=== PATIENT | female | born 1980 | race Caucasian/White ===

== ENCOUNTER 2022-10-22 13:52 | Inpatient (IN) | payer MEDICAID, SELFPAY ==
[2022-10-22 14:00] VITALS: BP 128/82; PULSE 108; RESP 16; TEMP 37; O2SAT 98
[2022-10-22 14:20] LABS: Basophils # 0.1 10^3/uL (0.0-0.1); Basophils % 0.8 %; Eosinophils # 0.1 10^3/uL (0.0-0.8); Eosinophils % 1.5 %; Hematocrit 43.8 % (37.0-47.0); Hemoglobin 14.3 g/dL (11.5-15.3); Lymphocytes # 1.8 10^3/uL (0.8-4.8); Lymphocytes % 19.3 %; Mean Corpuscular HGB Conc 32.6 g/dL (30.0-36.0); Mean Corpuscular Hemoglobin 31.9 pg (28.0-34.0); Mean Corpuscular Volume 97.8 fl (81-99); Mean Platelet Volume 10.2 fL (7.4-10.4); Monocytes # 0.9 10^3/uL (0.2-0.9); Neutrophils # 6.24 10^3/uL (1.8-7.7); Neutrophils % 68.2 %; Nucleated Red Blood Cells % 0 %; Platelet Count 224 10^3/cmm (130-400); Red Blood Count 4.48 10^6/uL (4.1-5.3); Red Cell Distribution Width 12.7 % (12.1-15.1); White Blood Count 9.1 10^3/uL (4.0-10.0)
[2022-10-22 14:21] VITALS: BP 109/76; PULSE 88; RESP 14; O2SAT 98
--- NOTE | 2022-10-22 14:38 | ED.C_ITS ---
Documented by User: AMRIK Schafer 10/22/22 16:32 HPI - Psych General: Chief Complaint: Psychiatric Symptoms Stated Complaint: SI/MHE Time Seen by Provider: 10/22/22 14:05 History of Present Illness: Patient is a 41-year-old female who comes in the ED with SI. Patient has a history of mood disorder, depression and anxiety. She currently gets a shot of Abilify every month and takes Prozac daily and Vistaril for acute anxiety. Thoughts of SI started yesterday. She had a plan to overdose on medications. She thinks that recent trigger for SI was her son leaving earlier than expected when visiting. She has had low energy and poor sleep. She has loss of interest in any activities and has trouble concentrating. Denies any alcohol or drug use. Associated symptoms: Reports depression and suicidal ideation Review of Systems Const: Denies: fever(s), chills or fatigue Eyes: Denies: change in vision or eye discomfort ENMT: Denies: throat pain, odynophagia, nasal discharge or nasal congestion Card: Denies: chest pain, palpitations, edema, swelling of feet/ankles, dyspnea on exertion or orthopnea Resp: Denies: dyspnea, productive cough or non-productive cough GI: Denies: abdominal pain, nausea, vomiting, diarrhea, constipation or hematochezia : Denies: flank pain, dysuria or hematuria Musc: Denies: neck pain, back pain or extremity swelling Skin/Breast: Denies: rash or new lesions Neuro: Denies: headache(s), numbness in extremities or weakness in extremities Psych: Reports: anxiety, depression and suicidal ideation [facility] ED PFSH: Medical History Anxiety Depression Mood disorder Physical Exam Const: COMMON NORMALS: patient oriented x3 and alert GENERAL APPEARANCE: cooperative HENMT: COMMON NORMALS: normocephalic HEAD & SCALP: normocephalic MOUTH: Normal oral and palatal mucosa present THROAT: posterior oropharynx normal and uvula midline Neck/C-Spine: COMMON NORMALS: supple GENERAL: Yes normal visual inspection Resp: COMMON NORMALS: normal respiratory effort, No retractions, No use of accessory muscles and clear to auscultation bilaterally AUSCULTATION: clear to auscultation bilaterally Cardio: COMMON NORMALS: regular rate, regular rhythm, S1 normal heart sound present, S2 normal heart sound present, No gallops present (Cardio), No clicks present (Cardio), No murmurs present (Cardio) and Peripheral pulses 2+ throughout RATE: regular rate RHYTHM: regular rhythm HEART SOUNDS: S1 normal heart sound present and S2 normal heart sound present PERIPHERAL PULSES: Peripheral pulses 2+ throughout GI: COMMON NORMALS: Normal to inspection, nondistended, normoactive bowel sounds present, Soft to palpation, non-tender and no masses PALPATION: Yes Soft to palpation : COMMON NORMALS: Yes no CVA tenderness BLADDER/KIDNEY EXAM: Yes no CVA tenderness Back/Pelvis: COMMON NORMALS: no CVA tenderness Extremity: COMMON NORMALS: normal to inspection Neuro: COMMON NORMALS: patient oriented x3 SENSORIUM/ORIENTATION: Yes alert GAIT: Yes Normal gait present Skin: GENERAL SKIN EXAM: dry skin Course Consultations: Consultation #1: Contacted Dr. Nj and told him about patient case. He agreed to have patient admitted to NPU. Vital Signs: Vital signs: Vital Signs Temperature 98.5 F 10/22/22 20:43 Pulse Rate 83 10/22/22 20:43 Respiratory Rate 17 10/22/22 20:43 Blood Pressure 116/77 10/22/22 20:43 Pulse Oximetry 94 10/22/22 20:43 Oxygen Delivery Me thod 10/22/22 20:43 MDM - Psych Medical Decision Making Patient is a 41-year-old female comes to the ED with SI. She was medically cleared here in the ED all labs were performed. Patient is willing to be admitted to the NPU for help. Negative urine drug screen. Negative blood alcohol level. I contacted Dr. Nj and told about patient case and he agreed to have patient admitted to the NPU. Dr. Sofia placed the admitting orders. Lab Data I reviewed the patient's lab results. 10/22/22 14:11 10/22/22 14:11 Laboratory Results WBC 9.1 10^3/uL (4.0-10.0) 10/22/22 14:11 RBC 4.48 10^6/uL (4.1-5.3) 10/22/22 14:11 Hgb 14.3 g/dL (11.5-15.3) 10/22/22 14:11 Hct 43.8 % (37.0-47.0) 10/22/22 14:11 MCV 97.8 fl (81-99) 10/22/22 14:11 MCH 31.9 pg (28.0-34.0) 10/22/22 14:11 MCHC 32.6 g/dL (30.0-36.0) 10/22/22 14:11 RDW 12.7 % (12.1-15.1) 10/22/22 14:11 Plt Count 224 10^3/cmm (130-400) 10/22/22 14:11 MPV 10.2 fL (7.4-10.4) 10/22/22 14:11 Neut % (Auto) 68.2 % 10/22/22 14:11 Lymph % (Auto) 19.3 % 10/22/22 14:11 [place] % (Auto) 10.0 % 10/22/22 14:11 Eos % (Auto) 1.5 % 10/22/22 14:11 Baso % (Auto) 0.8 % 10/22/22 14:11 Neut # (Auto) 6.24 10^3/uL (1.8-7.7) 10/22/22 14:11 Lymph # (Auto) 1.8 10^3/uL (0.8-4.8) 10/22/22 14:11 [place] # (Auto) 0.9 10^3/uL (0.2-0.9) 10/22/22 14:11 Eos # (Auto) 0.1 10^3/uL (0.0-0.8) 10/22/22 14:11 Baso # (Auto) 0.1 10^3/uL (0.0-0.1) 10/22/22 14:11 Nucleated RBC % (auto) 0 % 10/22/22 14:11 Nucleated RBCs # 0.0 /100WBC 10/22/22 14:11 Sodium 138 mmol/L (136-145) 10/22/22 14:11 Potassium 3.7 mmol/L (3.5-5.1) 10/22/22 14:11 Chloride 103 mmol/L (98-107) 10/22/22 14:11 Carbon Dioxide 25 mmol/L (22-29) 10/22/22 14:11 Anion Gap 13.7 (5-19) 10/22/22 14:11 BUN 8 mg/dL (6-20) 10/22/22 14:11 Creatinine 0.7 mg/dL (0.5-0.9) 10/22/22 14:11 GFR Calculation 93.2 mL/min (90-130) 10/22/22 14:11 Glucose 106 mg/dL (65-115) 10/22/22 14:11 Calculated Osmolality 285 mOsm/kg (285-295) 10/22/22 14:11 Calcium 9.3 mg/dL (8.5-10.5) 10/22/22 14:11 Total Bilirubin 0.4 mg/dL (0.15-1.2) 10/22/22 14:11 AST 15 U/L (0-32) 10/22/22 14:11 ALT 12 U/L (0-33) 10/22/22 14:11 Alkaline Phosphatase 108 U/L (35-105) H 10/22/22 14:11 Total Protein 7.3 g/dL (6.6-8.7) 10/22/22 14:11 Albumin 4.2 g/dL (3.5-5.2) 10/22/22 14:11 Globulin 3.1 g/dL (1.3-4.6) 10/22/22 14:11 HCG, Qual Negative (Negative) 10/22/22 14:11 Urine Color Yellow (Yellow) 10/22/22 14:50 Urine Appearance Clear (CLEAR) 10/22/22 14:50 Urine pH 6 (5-7) 10/22/22 14:50 Ur Specific [place] 1.010 (1.005-1.030) 10/22/22 14:50 Urine Protein Neg (Negative) 10/22/22 14:50 Urine Glucose (UA) Norm (Normal) 10/22/22 14:50 Urine Ketones Negative (Negative) 10/22/22 14:50 Urine Blood Neg (Negative) 10/22/22 14:50 Urine Nitrate Negative (Negative) 10/22/22 14:50 Urine Bilirubin Neg (Negative) 10/22/22 14:50 Urine Urobilinogen Neg mg/dL (Negative) 10/22/22 14:50 Ur Leukocyte Esterase Negative (Negative) 10/22/22 14:50 Salicylates < 0.3 mg/dL (3-10) L 10/22/22 14:11 Urine Opiates Screen Negative ng/mL (Negative) 10/22/22 14:50 Acetaminophen < 5.0 ug/mL (10-30) L 10/22/22 14:11 Ur Barbiturates Screen Negative ng/mL (Negative) 10/22/22 14:50 Ur Phencyclidine Scrn Negative ng/mL (Negative) 10/22/22 14:50 Ur Amphetamines Screen Negative ng/mL (Negative) 10/22/22 14:50 U Benzodiazepines Scrn Negative ng/mL (Negative) 10/22/22 14:50 Urine Cocaine Screen Negative ng/mL (Negative) 10/22/22 14:50 U Marijuana (THC) Screen Negative ng/mL (Negative) 10/22/22 14:50 Ethyl Alcohol < 10 mg/dL (0-10) 10/22/22 14:11 Discharge Plan Discharge Patient Disposition: Admitted As Inpatient Admit Provider: Luke Lopes Clinical Impression: Suicidal ideation Condition: Stable Coding Level of Care Code ED Dental Laboratory Assistant for Chg Fwd Exam Comprehensive Documented by User: Manoj Sofia DO 10/23/22 06:13 HPI - Psych General: Chief Complaint: Psychiatric Symptoms Stated Complaint: SI/MHE Time Seen by Provider: 10/22/22 14:05 PFS ED PFSH: Medical History Anxiety Depression Mood disorder Course Vital Signs: Vital signs: Vital Signs Temperature 98.5 F 10/22/22 20:43 Pulse Rate 83 10/22/22 20:43 Respiratory Rate 17 10/22/22 20:43 Blood Pressure 116/77 10/22/22 20:43 Pulse Oximetry 94 10/22/22 20:43 Oxygen Delivery Me thod 10/22/22 20:43 MDM - Psych Medical Decision Making Patient is a 41-year-old female comes to the ED with SI. She was medically cleared here in the ED all labs were performed. Patient is willing to be admitted to the NPU for help. Negative urine drug screen. Negative blood alcohol level. I contacted Dr. Nj and told about patient case and he agreed to have patient admitted to the NPU. Dr. Sofia placed the admitting orders. Chart reviewed and patient discussed with midlevel. Agree with assessment and plan. Admit to n.p.o. Lab Data 10/22/22 14:11 10/22/22 14:11 Laboratory Results WBC 9.1 10^3/uL (4.0-10.0) 10/22/22 14:11 RBC 4.48 10^6/uL (4.1-5.3) 10/22/22 14:11 Hgb 14.3 g/dL (11.5-15.3) 10/22/22 14:11 Hct 43.8 % (37.0-47.0) 10/22/22 14:11 MCV 97.8 fl (81-99) 10/22/22 14:11 MCH 31.9 pg (28.0-34.0) 10/22/22 14:11 MCHC 32.6 g/dL (30.0-36.0) 10/22/22 14:11 RDW 12.7 % (12.1-15.1) 10/22/22 14:11 Plt Count 224 10^3/cmm (130-400) 10/22/22 14:11 MPV 10.2 fL (7.4-10.4) 10/22/22 14:11 Neut % (Auto) 68.2 % 10/22/22 14:11 Lymph % (Auto) 19.3 % 10/22/22 14:11 [place] % (Auto) 10.0 % 10/22/22 14:11 Eos % (Auto) 1.5 % 10/22/22 14:11 Baso % (Auto) 0.8 % 10/22/22 14:11 Neut # (Auto) 6.24 10^3/uL (1.8-7.7) 10/22/22 14:11 Lymph # (Auto) 1.8 10^3/uL (0.8-4.8) 10/22/22 14:11 [place] # (Auto) 0.9 10^3/uL (0.2-0.9) 10/22/22 14:11 Eos # (Auto) 0.1 10^3/uL (0.0-0.8) 10/22/22 14:11 Baso # (Auto) 0.1 10^3/uL (0.0-0.1) 10/22/22 14:11 Nucleated RBC % (auto) 0 % 10/22/22 14:11 Nucleated RBCs # 0.0 /100WBC 10/22/22 14:11 Sodium 138 mmol/L (136-145) 10/22/22 14:11 Potassium 3.7 mmol/L (3.5-5.1) 10/22/22 14:11 Chloride 103 mmol/L (98-107) 10/22/22 14:11 Carbon Dioxide 25 mmol/L (22-29) 10/22/22 14:11 Anion Gap 13.7 (5-19) 10/22/22 14:11 BUN 8 mg/dL (6-20) 10/22/22 14:11 Creatinine 0.7 mg/dL (0.5-0.9) 10/22/22 14:11 GFR Calculation 93.2 mL/min (90-130) 10/22/22 14:11 Glucose 106 mg/dL (65-115) 10/22/22 14:11 Calculated Osmolality 285 mOsm/kg (285-295) 10/22/22 14:11 Calcium 9.3 mg/dL (8.5-10.5) 10/22/22 14:11 Total Bilirubin 0.4 mg/dL (0.15-1.2) 10/22/22 14:11 AST 15 U/L (0-32) 10/22/22 14:11 ALT 12 U/L (0-33) 10/22/22 14:11 Alkaline Phosphatase 108 U/L (35-105) H 10/22/22 14:11 Total Protein 7.3 g/dL (6.6-8.7) 10/22/22 14:11 Albumin 4.2 g/dL (3.5-5.2) 10/22/22 14:11 Globulin 3.1 g/dL (1.3-4.6) 10/22/22 14:11 HCG, Qual Negative (Negative) 10/22/22 14:11 Urine Color Yellow (Yellow) 10/22/22 14:50 Urine Appearance Clear (CLEAR) 10/22/22 14:50 Urine pH 6 (5-7) 10/22/22 14:50 Ur Specific [place] 1.010 (1.005-1.030) 10/22/22 14:50 Urine Protein Neg (Negative) 10/22/22 14:50 Urine Glucose (UA) Norm (Normal) 10/22/22 14:50 Urine Ketones Negative (Negative) 10/22/22 14:50 Urine Blood Neg (Negative) 10/22/22 14:50 Urine Nitrate Negative (Negative) 10/22/22 14:50 Urine Bilirubin Neg (Negative) 10/22/22 14:50 Urine Urobilinogen Neg mg/dL (Negative) 10/22/22 14:50 Ur Leukocyte Esterase Negative (Negative) 10/22/22 14:50 Salicylates < 0.3 mg/dL (3-10) L 10/22/22 14:11 Urine Opiates Screen Negative ng/mL (Negative) 10/22/22 14:50 Acetaminophen < 5.0 ug/mL (10-30) L 10/22/22 14:11 Ur Barbiturates Screen Negative ng/mL (Negative) 10/22/22 14:50 Ur Phencyclidine Scrn Negative ng/mL (Negative) 10/22/22 14:50 Ur Amphetamines Screen Negative ng/mL (Negative) 10/22/22 14:50 U Benzodiazepines Scrn Negative ng/mL (Negative) 10/22/22 14:50 Urine Cocaine Screen Negative ng/mL (Negative) 10/22/22 14:50 U Marijuana (THC) Screen Negative ng/mL (Negative) 10/22/22 14:50 Ethyl Alcohol < 10 mg/dL (0-10) 10/22/22 14:11 Discharge Plan Discharge Patient Disposition: Admitted As Inpatient Admit Provider: Luke Lopes Clinical Impression: Suicidal ideation Condition: Stable Coding Level of Care Code ED Dental Laboratory Assistant for [place] Fwd Exam Comprehensive
[2022-10-22 14:41] LABS: HCG, Serum Qual Negative (Negative)
[2022-10-22 14:42] LABS: Alanine Aminotransferase 12 U/L (0-33); Albumin Level 4.2 g/dL (3.5-5.2); Alkaline Phosphatase 108 U/L (35-105); Anion Gap 13.7 (5-19); Aspartate Amino Transferase 15 U/L (0-32); Blood Urea Nitrogen 8 mg/dL (6-20); Calcium 9.3 mg/dL (8.5-10.5); Carbon Dioxide 25 mmol/L (22-29); Chloride 103 mmol/L (98-107); Globulin 3.1 g/dL (1.3-4.6); Glomerular Filtration Rate 93.2 mL/min (90-130); Glucose 106 mg/dL (65-115); Osmolality Calculated 285 mOsm/kg (285-295); Potassium 3.7 mmol/L (3.5-5.1); Sodium 138 mmol/L (136-145); Total Bilirubin 0.4 mg/dL (0.15-1.2); Total Protein 7.3 g/dL (6.6-8.7)
[2022-10-22 14:48] LABS: Acetaminophen < 5.0 ug/mL (10-30); Alcohol Level < 10 mg/dL (0-10); Salicylate < 0.3 mg/dL (3-10)
[2022-10-22 15:04] LABS: Add Urine Microscopic? NO; Charge for UA Resulting for Rev
[2022-10-22] MEDS: LORazepam 1 mg Tablet PO (15:16)
[2022-10-22 15:34] LABS: Bilirubin Urine Neg (Negative); Blood Urine Neg (Negative); Glucose Urine UA Norm (Normal); Ketones Urine Negative (Negative); Leukocyte Esterase Urine Negative (Negative); Nitrate Urine Negative (Negative); Protein Urine Neg (Negative); Urine Appearance Clear (CLEAR); Urine Color Yellow (Yellow); Urobilinogen Urine Neg (Negative); pH Urine 6 (5-7)
[2022-10-22 15:36] LABS: Amphetamines Screen Urine Negative (Negative); Barbiturates Screen Urine Negative (Negative); Benzodiazepines Screen Urine Negative (Negative); Cocaine Screen Urine Negative (Negative); Opiate Screen Urine Negative (Negative); PCP Screen Urine Negative (Negative); THC Screen Urine Negative (Negative)
[2022-10-22 17:51] VITALS: BP 115/78; PULSE 77; RESP 16; TEMP 36.9; O2SAT 99
[2022-10-22 20:43] VITALS: BP 116/77; PULSE 83; RESP 17; TEMP 36.9; O2SAT 94
[2022-10-23 06:00] VITALS: BP 107/68; PULSE 65; RESP 16; TEMP 36.9; O2SAT 92
[2022-10-23] MEDS: sertraline 50 mg Tablet 25 MG PO (08:39)
[2022-10-23] MEDS: hyDROXYzine 25 mg Capsule 50 MG PO ×2 (11:04→18:50)
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
[2022-10-23 14:00] VITALS: BP 104/57; PULSE 89; RESP 17; TEMP 37.1; O2SAT 94
[2022-10-23 20:22] VITALS: BP 99/62; PULSE 74; RESP 16; TEMP 36.8; O2SAT 96
[2022-10-23] MEDS: trazodone 50 mg Tablet PO (20:53)
[2022-10-24] MEDS: sertraline 50 mg Tablet 25 MG PO (08:56)
[2022-10-24] MEDS: hyDROXYzine 25 mg Capsule 50 MG PO (12:58)
[2022-10-24 14:00] VITALS: BP 102/84; PULSE 75; RESP 16; TEMP 36.9; O2SAT 98
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
[2022-10-24] MEDS: lurasidone 20 mg Tablet 40 MG PO (16:12)
[2022-10-24] MEDS: nicotine 2 mg Gum BUCCAL (16:13)
[2022-10-24 21:10] VITALS: BP 99/62; PULSE 78; RESP 18; TEMP 37.1; O2SAT 92
[2022-10-25 06:00] VITALS: BP 114/72; PULSE 67; RESP 16; TEMP 36.7; O2SAT 96
[2022-10-25] MEDS: sertraline 50 mg Tablet 25 MG PO (08:23)
[2022-10-25] MEDS: acetaminophen 325 mg Tablet 650 MG PO (09:13)
[2022-10-25] MEDS: nicotine 21 mg Patch 1 PATCH TRANSDERMA (10:12)
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
[2022-10-25 14:00] VITALS: BP 104/66; PULSE 88; RESP 17; TEMP 36.8; O2SAT 98
[2022-10-25] MEDS: hyDROXYzine 25 mg Capsule 50 MG PO ×2 (15:58→19:56)
[2022-10-25] MEDS: lurasidone 20 mg Tablet 40 MG PO (17:20)
[2022-10-25] MEDS: trazodone 50 mg Tablet PO (19:56)
[2022-10-25 19:57] VITALS: BP 106/73; PULSE 82; RESP 18; TEMP 36.8; O2SAT 98
[2022-10-26 06:00] VITALS: BP 94/49; PULSE 74; RESP 18; TEMP 36.7; O2SAT 97
[2022-10-26] MEDS: lamoTRIgine 25 mg Tablet 50 MG PO (09:05)
[2022-10-26 14:00] VITALS: BP 100/55; PULSE 81; RESP 17; TEMP 37.1; O2SAT 96
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
[2022-10-26] MEDS: lurasidone 20 mg Tablet 40 MG PO (17:47)
[2022-10-26] MEDS: trazodone 50 mg Tablet PO (19:46)
[2022-10-26] MEDS: hyDROXYzine 25 mg Capsule 50 MG PO (19:46)
[2022-10-26 20:29] VITALS: BP 100/62; PULSE 70; RESP 16; TEMP 36.7; O2SAT 100
[2022-10-27 06:00] VITALS: BP 95/62; PULSE 62; RESP 17; TEMP 36.6; O2SAT 97
[2022-10-27] MEDS: acetaminophen 325 mg Tablet 650 MG PO ×2 (08:37→18:20)
[2022-10-27] MEDS: lamoTRIgine 25 mg Tablet 50 MG PO (08:38)
[2022-10-27] MEDS: nicotine 21 mg Patch 1 PATCH TRANSDERMA (12:23)
[2022-10-27 14:00] VITALS: BP 122/86; PULSE 98; RESP 16; TEMP 36.6; O2SAT 98
--- NOTE | 2022-10-27 14:53 | P.NPUPN_ITS ---
Subjective NPU Subjective: Patient presented today reporting that she was feeling much better on medications that she had Moses have arranged. She reports that the Latuda and the mental are feeling effective. She reported a plan to discontinue the Abilify Maintena according to her discussion with Dr. Lopes. We discussed that we would review the records and talk to Dr. Lopes to ensure that is in fact the plan. We discussed working with the treatment team on a discharge plan and we would discuss what the timing of discharge would likely be in the morning. Otherwise she denies any new or pressing issues. Mental Status Exam MSE Comments: This is a well-nourished, well-developed white female in hospital scrubs with adequate grooming and eye contact. Vital movements except for mild psychomotor retardation. Cooperative exam in no acute distress. Speech was monotone and slightly decreased rate and volume. Mood described as okay, affect mildly restricted. Thought process linear and mostly organized. Thought content: Patient denies suicidal or homicidal ideation, there are no delusions reported or noted, he denied any auditory or visual hallucinations. Attention and concentration were intact and memory appeared reliable but none were formally tested. She alert oriented x3. Insight and judgment appear improving and impulse control appears improving. Vitals/I&O/Wt Last Vital Signs Temp 98.0 F 10/27/22 20:42 Pulse 85 10/27/22 20:42 Resp 17 10/27/22 20:42 BP 112/74 10/27/22 20:42 Pulse Ox 96 10/27/22 20:42 O2 Del Method 10/27/22 20:42 Data NPU 10/22/22 14:11 10/22/22 14:11 A&P Assessment and plan (1) Bipolar depression: Plan She is a 41-year-old white female with a history of possible bipolar disorder currently on an intramuscular Abilify along with Zoloft with reports of continuing decline in depression with suicidal ideation with significant psychosocial stressors including financial stressors and pending divorce. She would likely benefit from continued inpatient hospitalization. 1. Continue Latuda to 40 mg at night to target bipolar depression as the patient appeared to provide clear history of a manic symptom episode with current depression reported. 2.? Encourage individual, group and milieu therapy 3.? Continue q-15 minute check for safety. 4. Recommend sober living treatment at the highest level of care to which the patient is willing to commit. 5. Abilify 400mg IM due 11/10/22, Continue Lamotrigine 50mg daily. Involuntary Hold Information 96 Hour Hold: 96 Hour Involuntary Admission: No Attestations NPU Medical Necessity Statement*: Inpatient hospitalization is medically necessary and the clinically appropriate intervention at this time. We will monitor medications and make changes as indicated. Likely length of stay is 2-4 days. Coding Level of Care Code Acute National Recruiter for Clarisse Mcfarlane Diagnoses Bipolar depression F31.9
[2022-10-27] MEDS: lurasidone 20 mg Tablet 40 MG PO (17:45)
[2022-10-27] MEDS: trazodone 50 mg Tablet PO (20:31)
[2022-10-27 20:42] VITALS: BP 112/74; PULSE 85; RESP 17; TEMP 36.7; O2SAT 96
[2022-10-28 06:00] VITALS: RESP 16
[2022-10-28] MEDS: lamoTRIgine 25 mg Tablet 50 MG PO (08:35)
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
[2022-10-28 13:02] VITALS: BP 112/74; PULSE 85; RESP 16; TEMP 36.6; O2SAT 96
[2022-10-28] MEDS: acetaminophen 325 mg Tablet 650 MG PO (15:26)
== END 2022-10-28 16:43 | disposition home or self-care (01) | DRG 885 ==
LOC: ER 16:01 → NP 16:09
PROVIDERS: Physician Assistant; Admitting Provider Psychiatry & Neurology Psychiatry; Emergency Provider Family Medicine; PCP Family Medicine; Visit Provider Psychiatry & Neurology Psychiatry
DX: F31.9 Bipolar disorder, unspecified (principal)
CPT/HCPCS: 36415; 80053; 80306; 80307; 81003; 84703; 85025; 90471; 90686; 97150; 97165; 99285

== ENCOUNTER → 2022-12-20 10:56 | Outpatient (BNVA) | payer OTHER, SELFPAY | PROVIDERS: PCP Family Medicine; Visit Provider Nurse Practitioner | DX: F31.9 Bipolar disorder, unspecified (principal); F17.200 Nicotine dependence, unspecified, uncomplicated; Z79.899 Other long term (current) drug therapy | CPT/HCPCS: 80061; 83036 ==

== ENCOUNTER → 2024-01-22 09:25 | Outpatient (BNVA) | payer OTHER, SELFPAY | PROVIDERS: PCP Family Medicine; Visit Provider Psychiatry & Neurology Psychiatry | DX: Z79.899 Other long term (current) drug therapy (principal) | CPT/HCPCS: 80053; 80061; 83036; 84443; 85025 ==